=== PATIENT | female | born 1940 | race African-American/Black ===

== ENCOUNTER 2017-04-12 14:11 | Outpatient (CLI) | payer MEDICARE, OTHER ==
--- NOTE | 2017-04-15 15:23 | OP Clinic Progress Note ---
REASON FOR VISIT: Tatiana Lemus returns for follow up. I have not seen her since 2013. When I last saw her on August 14, 2013, we were treating her for seronegative rheumatoid arthritis. Her sedimentation rate and CRP were normal. She was having no pain. She was going to have a knee replacement. Her Arava had been stopped and she had no joint pains. She did well until about 4 months ago when her joint pains reoccurred. She was seen by Rheumatology in [place]. She was tried on methotrexate, which she failed, and then given Arava 10 mg daily about a month ago. At present, she still has over 60 minutes of morning stiffness and pain at 5 over 10 in the hands, wrists, and feet. Nothing has been overtly swollen. Her shoulders and knees are also worsening. She has had a right TKA which has had 3 revisions. She is here to resume care. ALLERGIES: She reports allergies to: 1. Plaquenil. 2. Penicillin. PAST MEDICAL HISTORY: 1. Diabetes. 2. Hyperlipidemia. 3. Hypertension. 4. Hysterectomy. 5. Bilateral shoulder surgeries. 6. Multiple arthroscopic surgeries to the knees. 7. Bilateral bunionectomy. 8. Right total knee replacement. PRESENT MEDICATIONS: 1. NovoLog insulin. 2. Lantus insulin. 3. Simvastatin 20 mg at bedtime. 4. Amlodipine 5 mg daily. 5. Carvedilol 6.25 mg every 12 hours. 6. Omeprazole 20 mg daily. 7. Indapamide 1.25 mg daily. 8. Leflunomide 10 mg daily. 9. Aspirin 325 mg daily. REVIEW OF SYSTEMS: No fevers, chills, sweats, chest pain, shortness of breath, cough, wheezing, nausea, vomiting, or diarrhea. PHYSICAL EXAMINATION: VITAL SIGNS: Height: 5 feet 2 inches. Weight: 224 pounds. T: 97, R: 18, heart rate of 70, BP: 170/70. HEENT: Sclerae are anicteric. Conjunctivae are pink. No stomatitis or glossitis. LUNGS: Clear bilaterally with no crackles or wheezing. HEART: Regular rhythm. ABDOMEN: Soft and nontender. VASCULAR: No edema or cyanosis. PERIPHERAL JOINTS: PIPs, MCPs, and wrists are tender but no overt synovitis. Elbows and shoulders are unremarkable. Knees and ankles are tender. DIAGNOSTIC STUDIES: She brings in some labs from February 12. Her sedimentation rate was 72. Hemoglobin 11.6. CMP was within normal limits. CRP was 1.14. IMPRESSION: Rheumatoid arthritis, unspecified, multiple joints. PLAN: We will check AVISE testing. I am bumping her Arava up to 20 mg daily. I will see her back in 1 months' time. Thank you very much. cc: Alonzo SAUNDERS
== END 2017-04-12 14:12 ==
LOC: RHEU 14:11
PROVIDERS: ATTEND Internal Medicine
DX: M05.9 Rheumatoid arthritis with rheumatoid factor, unspecified (principal)
CPT/HCPCS: 36415; G0463

== ENCOUNTER → 2017-05-17 | Outpatient (CLI) | payer MEDICARE, OTHER ==
--- NOTE | 2017-05-20 11:20 | OP Clinic Progress Note ---
REASON FOR VISIT: Tatiana Lemus returns for follow up. She is doing somewhat better since I increased her Arava from 10 mg to 20 mg daily. She has less morning stiffness and pain. Most of her pain today is in the right scapular region. She has had this pain before. It can be quite severe. It is worse when she does laundry or reaches up. Let us recall that she has had bilateral shoulder surgeries in the past. PAST MEDICAL HISTORY: 1. Diabetes. 2. Hyperlipidemia. 3. Hypertension. 4. Hysterectomy. 5. Bilateral shoulder surgeries. 6. Right total knee arthroplasty. 7. Bilateral bunionectomy. PRESENT MEDICATIONS: 1. NovaLog. 2. Lantus. 3. Simvastatin 20 mg at bedtime. 4. Amlodipine 5 mg daily. 5. Carvedilol 6.25 mg every 12 hours. 6. Omeprazole 20 mg daily. 7. Indapamide 1.25 mg daily. 8. Leflunomide 20 mg daily. 9. Aspirin 325 mg daily. ALLERGIES: 1. Plaquenil. 2. Penicillin. 3. Intolerance to methotrexate. REVIEW OF SYSTEMS: No fevers, chills, sweats, chest pain, shortness of breath, cough, wheezing, nausea, vomiting, or diarrhea. No skin rashes, nodules, numbness or tingling of her extremities. No falls. PHYSICAL EXAMINATION: VITAL SIGNS: Weight: 230 pounds. T: 97.3, R: 20, heart rate 56, BP: 154/79. HEENT: Sclerae are anicteric. Conjunctivae are pink. No stomatitis or glossitis. LUNGS: Clear with no crackles or wheezing. HEART: Regular rhythm. ABDOMEN: Soft and nontender. VASCULAR: No edema or cyanosis. PERIPHERAL JOINTS: Little tenderness at the MCPs and wrists but no overt synovitis. Elbows are unremarkable. She has some pain with abduction in both shoulders. She has reproduction of her pain on external rotation of her right shoulder. She also has palpable trigger point right scapular region. Hips, knees, ankles, and feet are grossly unremarkable with some tenderness. DIAGNOSTIC STUDIES: Review of her labs, IgA and IgM rheumatoid factors are positive. CCP antibody positive. OZE and MICHAEL are negative. IMPRESSION: 1. Seropositive rheumatoid arthritis of multiple sites. 2. High risk drug. We will check her labs for disease activity and drug toxicity. 3. Shoulder pain. I suspect a component of her rheumatoid. PLAN: I am putting her on a smidgen of prednisone 5 mg twice a day which she will take as needed. She will keep an eye on her blood sugars. Otherwise, I will see her back in 2 months. Thank you very much. cc: Dr. Alonzo SAUNDERS
== END ==
LOC: RHEU 12:46
PROVIDERS: ATTEND Internal Medicine
DX: M05.89 Other rheumatoid arthritis with rheumatoid factor of multiple sites (principal); Z79.899 Other long term (current) drug therapy; M25.511 Pain in right shoulder
CPT/HCPCS: 99214; G0463

== ENCOUNTER 2017-11-15 | Outpatient (CLI) | payer MEDICARE, OTHER ==
--- NOTE | 2017-11-18 15:27 | OP Clinic Progress Note ---
REASON FOR VISIT: Tatiana Lemus returns for follow up of seropositive rheumatoid arthritis of multiple sites and from that point of view, she is doing well. She has no joint swelling, warmth, tenderness, morning stiffness, or pain. She had a fall and broke her right wrist in July and now she is having problems with her left knee pain and it is felt to be a torn meniscus. She may need arthroscopic repair. Otherwise, rest of her systems reviewed, no fevers, chills, sweats, chest pain, shortness of breath, cough, wheezing, nausea, vomiting, or diarrhea. No mouth sores. No numbness or tingling of her extremities. PAST MEDICAL HISTORY: 1. Diabetes. 2. Hyperlipidemia. 3. Hypertension. 4. Hysterectomy. 5. Bilateral shoulder surgery. 6. Right total knee replacement. 7. Bilateral bunionectomy. PRESENT MEDICATIONS: 1. NovoLog. 2. Lantus. 3. Simvastatin 20 mg at bedtime. 4. Amlodipine 5 mg daily. 5. Carvedilol 6.25 mg every 12 hours. 6. Omeprazole 20 mg daily. 7. Indapamide 1.25 mg daily. 8. Leflunomide 20 mg daily. 9. Aspirin 325 mg daily. 10. Prednisone 5 mg with an occasional 10 mg depending on any flares. Note: Her last increase of prednisone did not resolve her left knee pain. ALLERGIES: She is allergic to: 1. Penicillin. 2. Plaquenil. 3. Intolerance to methotrexate. PHYSICAL EXAMINATION: GENERAL: She looks well. VITAL SIGNS: Height: 5 feet 2 inches. Weight: 230 pounds. T: 96.9, R: 20 , heart rate 73, BP: 155/65. HEENT: Sclerae are anicteric. Conjunctivae are pink. No stomatitis or glossitis. LUNGS: Clear bilaterally with no crackles or wheezing. HEART: Regular rate and rhythm. ABDOMEN: Soft and nontender. VASCULAR: No edema or cyanosis. PERIPHERAL JOINTS: No synovitis at the DIPs, PIPs, MCPs, wrists, elbows, shoulders, hips, knees, ankles, and feet. IMPRESSION: 1. Seropositive rheumatoid arthritis, active and stable. Doing well. 2. High risk drug. No evidence of drug toxicity. PLAN: 1. She had labs last week in [place]. We will try to obtain those. 2. I will see her back in 3 months. I told her we will check her labs here at that time. Thank you very much. Best regards, cc: Dr. Alonzo SAUNDERS
== END 2017-11-15 14:55 ==
CPT/HCPCS: 99214; G0463

== ENCOUNTER 2018-02-14 10:24 | Outpatient (CLI) | payer MEDICARE, OTHER ==
[2018-02-14 11:06] LABS: BASOPHILS % 0.5 (0.0-1.5); EOSINOPHILS % 4.2 % (0.0-6.8); MEAN CORPUSCULAR VOLUME 89.9 fl (80.0-100.0); MONOCYTES % 7.3 % (0.0-11.0)
[2018-02-14 12:04] LABS: eGFR (African) > 60; eGFR (Non-African) > 60
--- NOTE | 2018-02-14 13:42 | OP Clinic Progress Note ---
REASON FOR VISIT: Tatiana Lemus returns for follow up on her seropositive rheumatoid arthritis of multiple sites. All her joints are doing well except for her left knee. On December 13, she had an arthroscopy for meniscal repair and the knee continues to be swollen and tender. She saw Dr. Myriam Lugo a few days ago who offered to inject her knee but she refused at that time. She has no morning stiffness. She is using a cane and it has caused a little discomfort in her back. PAST MEDICAL HISTORY: 1. Diabetes type 2. 2. Hyperlipidemia. 3. Hypertension. 4. Hysterectomy. 5. Bilateral shoulder surgeries. 6. Right knee replacement. 7. Bunionectomy. ALLERGIES: She reports allergies to: 1. Penicillin. 2. Plaquenil. 3. Intolerance to methotrexate. PRESENT MEDICATIONS: 1. NovoLog. 2. Lantus. 3. Simvastatin 20 mg at bedtime. 4. Amlodipine 5 mg daily. 5. Carvedilol 6.25 mg every 12 hours. 6. Omeprazole 20 mg daily. 7. Indapamide 1.25 mg daily. 8. Leflunomide 20 mg daily. 9. Aspirin 325 mg daily. REVIEW OF SYSTEMS: No fevers, chills, sweats, chest pain, shortness of breath, cough, wheezing, nausea, or vomiting. PHYSICAL EXAMINATION: GENERAL: She looks well. VITAL SIGNS: Height: 5 feet 2 inches. Weight: 227 pounds. T: 97.2, R: 20 , heart rate 28, BP: 160/58. HEENT: Sclerae are anicteric. Conjunctivae are pink. No stomatitis or glossitis. LUNGS: Clear bilaterally with no crackles or wheezing. HEART: Regular rate and rhythm. ABDOMEN: Soft and nontender. VASCULAR: No edema or cyanosis. PERIPHERAL JOINTS: No synovitis at the DIPs, PIPs, MCPs, wrists, elbows, shoulders, hips, knees, ankles, and feet. Her left knee is tender and swollen. A small effusion. Arthroscopic scars are well healed and no drainage. She does have some tenderness over the left anserine bursa. IMPRESSION: Seropositive rheumatoid arthritis, active. PLAN: 1. I am putting her back on prednisone 5 mg twice a day. 2. We will check her labs for disease activity and drug toxicity today. 3. I will see her back in 3 months. 4. She should call us if she should have any worsening symptoms or fails to improve. cc: Dr. Alonzo SAUNDERS
== END 2018-02-14 12:37 ==
LOC: RHEU 10:24
PROVIDERS: ATTEND Internal Medicine
DX: M05.9 Rheumatoid arthritis with rheumatoid factor, unspecified (principal)
CPT/HCPCS: 36415; 80053; 85025; 85651; 86140; 99214; G0463

== ENCOUNTER 2018-05-16 10:33 | Outpatient (CLI) | payer MEDICARE, OTHER ==
--- NOTE | 2018-05-19 11:44 | OP Clinic Progress Note ---
REASON FOR VISIT: Tatiana Lemus returns for follow up of seropositive rheumatoid arthritis of multiple sites. She is doing much better since I last saw her. Her left knee has improved. She took a little bit of prednisone 5 mg twice a day for about a week and her symptoms resolved. Otherwise, the rest of her joints, no significant stiffness or swelling. No new deformities. No skin rashes or nodules. PAST MEDICAL HISTORY: 1. Diabetes type 2. 2. Hyperlipidemia. 3. Hypertension. 4. Hysterectomy. 5. Bilateral shoulder surgery. 6. Right knee replacement. 7. Bunionectomy. 8. Left knee arthroscopy. PRESENT MEDICATIONS: 1. Aspirin 325 mg daily. 2. Leflunomide 20 mg daily. 3. Indapamide 1.25 mg daily. 4. Omeprazole 20 mg daily. 5. Carvedilol 6.25 mg every 12 hours. 6. Amlodipine 5 mg daily. 7. Simvastatin 20 mg at bedtime. 8. Lantus insulin. 9. NovoLog insulin ALLERGIES: 1. Penicillin. 2. Plaquenil. 3. Intolerant to methotrexate. REVIEW OF SYSTEMS: No new medical problems. No fevers, chills, sweats, chest pain, shortness of breath, cough, wheezing, nausea, or vomiting. PHYSICAL EXAMINATION: VITAL SIGNS: BP: 140/76, P: 65, R: 18, T: 97.2. Weight: 229. Pain is zero over 10. HEENT: Sclerae are anicteric. Conjunctivae are pink. No stomatitis or glossitis. LUNGS: Clear bilaterally with no crackles or wheezing. HEART: Regular rate and rhythm. ABDOMEN: Soft and nontender. VASCULAR: Shows no edema or cyanosis. PERIPHERAL JOINTS: No synovitis at the DIPs, PIPs, MCPs, wrists, elbows, shoulders, hips, knees, ankles, and feet. LABORATORY: Her last labs were reviewed and were dated February 14 and are included in the chart. Note, her creatinine was 1.1. ASSESSMENT: Seropositive rheumatoid arthritis. Doing well. PLAN: 1. She is to continue her present regimen. 2. I gave her a lab slip for a CBC, CMP, and sedimentation rate. 3. I will see her back in 3 months. Thank you very much. cc: Dr. Alonzo SAUNDERS
== END 2018-05-16 10:35 ==
LOC: RHEU 10:33
PROVIDERS: ATTEND Internal Medicine
DX: M05.9 Rheumatoid arthritis with rheumatoid factor, unspecified (principal)
CPT/HCPCS: 99214; G0463